=== PATIENT | female | born 1955 | race Caucasian/White ===

== ENCOUNTER 2020-12-07 10:58 | Emergency (ER) | payer MEDICAID, SELFPAY ==
[2020-12-07 10:58] VITALS: BP 171/122; PULSE 71; RESP 20; TEMP 36.3; O2SAT 100; BMI 41.8
--- NOTE | 2020-12-07 11:13 | EDS_ITS ---
HPI History of Present Illness Chief Complaint: Flank Pain Informant: patient Narrative Narrative: Intermittent nontraumatic right flank pain for the past 3 days. Pain wraps to the side. No nausea or vomiting. Urine frequency however states only after she drinks coffee. No history of kidney stones. States when the pain comes nearly passes out. History of gastric bypass in 2011. Called PCP office today was told to go get evaluated in the ED. Reports pains currently subsided. Prior similar symptoms: No PFSH PFSH Home Medications cholecalciferol (vitamin D3) 4,000 unit PO DAILY 12/07/20 [History Last Taken Unknown] Allergy/AdvReac Type Severity Reaction Status Date / Time Penicillins Allergy Rash Verified 12/07/20 11:26 Sulfa (Sulfonamide Allergy Rash Verified 12/07/20 11:26 Antibiotics) Surgical History H/O: hysterectomy History of cholecystectomy History of gastric bypass History of hernia repair History of tonsillectomy Social History Smoking Status: Current every day smoker tobacco type: cigarettes ROS ROS ED Constitutional Constitutional ED: Denies chills, fever(s) or sweats Eyes Eyes: Denies change in vision ENT ENT ED: Denies dysphagia or sore throat Cardiovascular Cardiovascular: Denies chest pain, leg edema, palpitations or racing heartbeat Respiratory/Chest Respiratory/Chest: Denies cough, dyspnea or dyspnea on exertion Gastrointestinal Gastrointestinal: Denies abdominal pain, diarrhea, nausea or vomiting Genitourinary Genitourinary ED: Denies dysuria, hematuria or urinary frequency Musculoskeletal Musculoskeletal: Reports back pain; Denies extremity pain or neck pain Integumentary Denies rash or wounds Neurologic Neurologic: Denies headache(s), paresthesias or weakness EXAM Physical Exam Const Vital Signs: 12/07/20 10:58 12/07/20 12:54 Temperature 97.3 F L Temperature Source Temporal Pulse Rate 71 90 Respiratory Rate 20 H 17 Blood Pressure 171/122 H 158/91 H Blood Pressure Mean 138 Pulse Ox 100 99 Oxygen Delivery Method Room Air Positive well nourished and well developed General Appearance ED: well developed and NAD HEENT Reports moist mucous membranes normocephalic and atraumatic Eyes PERRL, EOMs intact bilaterally and conjunctivae normal General Eye ED: Yes normal appearance of both eyes Neck no lymphadenopathy and supple General: Negative for tenderness Chest Wall Chest: Negative for tenderness Resp normal respiratory effort and normal air movement Effort and Inspection: symmetric chest movement; Negative for respiratory distress Cardio regular rate, regular rhythm and no murmurs Peripheral Pulses: pulses 2+ throughout GI normal to inspection, nondistended, normoactive bowel sounds and non-tender Palpation: Negative for guarding or rebound tenderness present Back/Spine no thoracic nor lumbar tenderness Back/Spine Narrative: Right CVA tenderness no rash or ecchymosis. General Back: CVA tenderness Extremity normal to inspection General Extremety ED: Negative for edema or tenderness General Extremity: Negative for edema Neuro oriented x3 and no sensory deficits noted Sensorium / Orientation: awake and alert Skin no rashes or lesions noted and no wounds MDM MDM MDM Narrative Medical decision making narrative: Patient with intermittent right flank pain. Renal stone protocol initiated. She declined any medications. Work-up negative. Discussed with patient monitoring for rash. With her history of gastric bypass she will avoid NSAIDs she will use Tylenol as needed. She will follow-up with her PCP with return precautions. All questions were answered. Lab Data Attestation: I reviewed the patient's lab results. Labs: Laboratory Results - last 24 hr 12/07/20 12/07/20 12/07/20 11:24 11:24 11:45 WBC 7.0 RBC 4.51 Hgb 13.6 Hct 42.3 MCV 93.8 MCH 30.2 MCHC 32.2 RDW Std Deviation 45.4 H RDW Coeff of Thi 13.2 Plt Count 273 MPV 11.0 Immature Gran % (Auto) 0.300 Neut % (Auto) 54.7 Lymph % (Auto) 34.6 [place] % (Auto) 7.8 Eos % (Auto) 1.9 Baso % (Auto) 0.7 Absolute Neuts (auto) 3.8 Absolute Lymphs (auto) 2.41 Nucleated RBC % 0 Sodium 139 Potassium 4.2 Chloride 106 Carbon Dioxide 27.0 Anion Gap 6 BUN 11 Creatinine 0.73 Estim Creat Clear Calc 58.75 Est GFR (MDRD) Af Amer 103 Est GFR (MDRD) Non-Af 85 BUN/Creatinine Ratio 15.0 Glucose 94 Calcium 9.2 Urine Color Yellow Urine Clarity Clear Urine pH 6.5 Ur Specific [place] 1.005 Urine Protein Negative Urine Glucose (UA) Normal Urine Ketones Negative Urine Occult Blood Negative Urine Nitrite Negative Urine Bilirubin Negative Urine Urobilinogen Normal Ur Leukocyte Esterase Negative Urine RBC 0 SEEN Urine WBC 0 SEEN Ur Squamous Epith Cells 0 SEEN Urine Bacteria 0 SEEN Urine Mucus 0 SEEN Radiography Diagnostic Testing: Radiology Impression Abdomen/Pelvis CT 12/07/20 11:58 IMPRESSION: No acute intra-abdominal process. Atherosclerosis. Bilateral L5 pars defects. Grade 1 anterior spondylolisthesis of L4 on L5. Electronically Signed: Trina Cerrato MD at 12:17 EDT Tel , Service support , Discharge Plan Triage Chief Complaint: Flank Pain ED Provider: Atif Sheets Dx/Rx/DC Orders Clinical Impression: Acute right flank pain Instructions: ED Flank Pain, Uncertain Cause Prescriptions: No Action cholecalciferol (vitamin D3) 50 mcg (2,000 unit) capsule 4,000 unit PO DAILY RF: 0 Primary Care Provider: Courtney Keenan Referrals: Courtney Keenan MD [Primary Care Provider] - 3-5 Days Disposition Disposition: Home, Self Care Discharge Date/Time: 12/07/20 12:54
[2020-12-07 11:41] LABS: Absolute Lymphocyte Count 2.41 X10^3/uL (0.83-4.51); Absolute Neutrophil Count 3.8 X10^3/uL (2.0-7.7); Basophil# 0.05 X10^3/uL; Basophil% 0.7 % (0-1); Eosinophil# 0.13 X10^3/uL; Eosinophils% 1.9 % (0-5); Hematocrit 42.3 % (37-47); Hemoglobin 13.6 g/dL (12.0-15.0); Lymphocyte # 2.41 X10^3/ul (0.83-4.51); Lymphocyte % 34.6 % (19-41); Mean Corp Hgb Conc 32.2 g/dL (32-36); Mean Corpuscular Hgb 30.2 pg (27.0-32.0); Mean Corpuscular Volume 93.8 fL (81-99); Monocyte# 0.54 X10^3/uL; Monocyte% 7.8 % (0-10); NRBC Flagged by Analyzer 0 % (0-5); Neutrophil # 3.81 X10^3/uL (2.7-7.7); Neutrophil % 54.7 % (47-70); Platelet Count 273 K/mm3 (150-450); RBC Distribution Width CV 13.2 % (11.6-14.6); RBC Distribution Width SD 45.4 fl (35.1-43.9); Red Blood Count 4.51 M/mm3 (4.2-5.4)
[2020-12-07 11:50] LABS: Bacteria 0 SEEN /hpf (None Seen); Mucous, Urine 0 SEEN /hpf (<or=2+); Red Blood Cells-Urine 0 SEEN /hpf (0-5); Squamous Epithelial Cells - UA 0 SEEN /hpf (5-10); White Blood Cells 0 SEEN /hpf (0-5)
[2020-12-07 11:52] LABS: Color, Urine Yellow (Yellow); Glucose, Dipstick Normal (Normal); Ketone-Dipstick Negative (Negative); Leukocyte Esterase-Dipstick Negative /ul (Negative); Nitrite-Dipstick Negative (Negative); Occult Blood-Urine Negative /ul (Negative); Protein-Dipstick Negative (Negative); Specific Gravity, Urine 1.005 (1.002-1.030); Urine Bilirubin Dipstick Negative (Negative); Urine Clarity Clear (Clear); Urine Urobilinogen Normal (Normal); Urine pH 6.5 (5.0 - 8.0)
--- NOTE | 2020-12-07 11:58 | CT_ITS ---
STUDY: CT ABDOMEN AND PELVIS WITHOUT CONTRAST REASON FOR EXAM: Female, 65 years old. Kidney Stone RADIATION DOSAGE (If Supplied By Facility): CTDIvol = ( 21.95 ) mGy, DLP = ( 1059.43 ) mGycm TECHNIQUE: Transaxial images were obtained from the dome of the diaphragm to the symphysis pubis without oral contrast, and without intravenous contrast. Sagittal and coronal images were reconstructed. Individualized dose optimization techniques were used for this CT. COMPARISON: None. FINDINGS: The visualized lung bases are unremarkable. The visualized portions of the heart are within normal limits. The lack of intravenous contrast limits evaluation of solid visceral organs. Normal liver. There are surgical clips in the gallbladder fossa consistent with a prior cholecystectomy. Normal spleen. Normal pancreas. Normal bilateral adrenal glands. Normal right kidney. Normal left kidney. There are postsurgical changes of the stomach suggestive of a prior gastric bypass. Normal small intestine. Normal colon. There is non-visualization of the appendix. There is diffuse atherosclerotic calcification of the abdominal aorta, without a demonstrated aneurysm. Normal inferior vena cava. Normal retroperitoneum. Normal urinary bladder. There are phleboliths within the pelvis. There are postsurgical changes of the abdominal wall. There are diffuse degenerative changes of the visualized lumbar spine. There are bilateral L5 pars defects. There is a grade 1 anterior spondylolisthesis of L4 on L5. CT/Abdomen/Pelvis without Cont IMPRESSION: No acute intra-abdominal process. Atherosclerosis. Bilateral L5 pars defects. Grade 1 anterior spondylolisthesis of L4 on L5. Electronically Signed: Trina Cerrato MD at 12:17 EDT Tel , Service support ,
[2020-12-07 12:03] LABS: Anion Gap 6 (5-15); BUN 11 mg/dL (7-18); Calcium,Total 9.2 mg/dL (8.5-10.1); Chloride 106 mmol/L (98-107); Creatinine, Serum 0.73 mg/dL (0.55-1.02); EST Glomerular Filtration Rate 85 mL/min (>60); Est Glom Filt Rate - Afr Amer 103 mL/min (>60); Estimated Creatinine Clearance 58.75 ml/min; Glucose 94 mg/dL (74-106); Potassium 4.2 mmol/L (3.5-5.1); Sodium Level 139 mmol/L (136-145)
[2020-12-07 12:54] VITALS: BP 158/91; PULSE 90; RESP 17; O2SAT 99
== END 2020-12-07 12:54 | disposition home or self-care (01) ==
PROVIDERS: Emergency Provider Emergency Medicine; PCP Internal Medicine
DX: R10.9 Unspecified abdominal pain (principal); M43.16 Spondylolisthesis, lumbar region; Z98.84 Bariatric surgery status; F17.210 Nicotine dependence, cigarettes, uncomplicated; Z90.49 Acquired absence of other specified parts of digestive tract
CPT/HCPCS: 74176; 80048; 81001; 85025; 99283; A4216